=== PATIENT | male | born 1970 | race Caucasian/White ===

== ENCOUNTER 2018-09-11 20:25 | Emergency (ER) | payer SELFPAY ==
[2018-09-12] MEDS: ASPIRIN 325 MG TAB PO (02:47)
[2018-09-12] MEDS: DEXAMETHASONE 10 MG/ML 1 ML INJ IM (02:47)
[2018-09-12] MEDS: IPRATROPIUM (NEB) 0.5 MG/2.5 ML AMP HHN (02:59)
[2018-09-12] MEDS: ALBUTEROL 0.083% (NEB) 2.5 MG/3 ML AMP HHN (02:59)
== END 2018-09-12 03:37 | disposition home or self-care (01) ==
LOC: FTE 20:25
DX: J45.901 Unspecified asthma with (acute) exacerbation (principal); R05 Cough; Z79.82 Long term (current) use of aspirin
CPT/HCPCS: 93005; 94664; 96372; 99284-25

== ENCOUNTER 2018-10-21 09:15 | Emergency (ER) | payer OTHER | END 2018-10-21 10:30 | disposition home or self-care (01) | LOC: FTE 10:30 | DX: J45.909 Unspecified asthma, uncomplicated (principal) | CPT/HCPCS: 87880; 99283 ==

== ENCOUNTER 2018-10-30 20:14 | Emergency (ER) | payer OTHER ==
[2018-10-30] MEDS: IPRATROPIUM (NEB) 0.5 MG/2.5 ML AMP NEB (21:52)
[2018-10-30] MEDS: LEVALBUTEROL (NEB) 1.25 MG/0.5 ML AMP INH (21:52)
[2018-10-30 21:54] LABS: ADD MAN DIFF? NO
[2018-10-30] MEDS: SOD CHLORIDE 0.9% 1,000 ML IV (21:54)
[2018-10-30 21:58] LABS: BASOPHIL # 0.1 10^3/ul (0.0-0.1); BASOPHILS % 0.7 % (0.0-2.0); EOSINOPHILS # 0.3 10^3/ul (0.0-0.5); EOSINOPHILS % 3.7 % (0.0-7.0); HEMATOCRIT 41.4 % (42.0-52.0); HEMOGLOBIN 14.1 g/dl (14.0-18.0); LYMPHOCYTES # 2.6 10^3/ul (0.8-2.9); LYMPHOCYTES % 30.9 % (15.0-51.0); MEAN CORPUSCULAR HEMOGLOBIN 29.2 pg (29.0-33.0); MEAN CORPUSCULAR HGB CONC 34.1 g/dl (32.0-37.0); MEAN CORPUSCULAR VOLUME 85.7 fl (82.0-101.0); MEAN PLATELET VOLUME 10.9 fl (7.4-10.4); MONOCYTES % 11.4 % (0.0-11.0); NEUTROPHIL # 4.4 10^3/ul (1.6-7.5); NEUTROPHILS % 52.6 % (39.0-77.0); PLATELET COUNT 197 10^3/UL (140-415); RED BLOOD COUNT 4.83 10^6/ul (4.70-6.10); RED CELL DISTRIBUTION WIDTH 12.7 % (11.5-14.5)
[2018-10-30 21:58] LABS: WHITE BLOOD COUNT 8.3 10^3/ul (4.8-10.8)
[2018-10-30 22:16] LABS: ALANINE AMINOTRANSFERASE 55 IU/L (13-69); ALBUMIN 3.9 g/dl (3.3-4.9); ALBUMIN/GLOBULIN RATIO 1.21; ALKALINE PHOSPHATASE 99 IU/L (42-121); ANION GAP 8 (5-13); ASPARTATE AMINO TRANSFERASE 27 IU/L (15-46); BILIRUBIN,INDIRECT 0.2 mg/dl (0-1.1); BILIRUBIN,TOTAL 0.2 mg/dl (0.2-1.3); BLOOD UREA NITROGEN 21 mg/dl (7-20); CALCIUM 9.4 mg/dl (8.4-10.2); CARBON DIOXIDE 25 mmol/L (21-31); CHLORIDE 108 mmol/L (97-110); CREATININE 0.93 mg/dl (0.61-1.24); Estimated GFR > 60 mL/min (>60); GLUCOSE 109 mg/dl (70-220); LIPASE 59 U/L (23-300); POTASSIUM 3.7 mmol/L (3.5-5.1); SODIUM 141 mmol/L (135-144); TOTAL PROTEIN 7.1 g/dl (6.1-8.1)
== END 2018-10-31 01:07 | disposition home or self-care (01) ==
LOC: E/R 10-31 01:07
DX: J45.901 Unspecified asthma with (acute) exacerbation (principal); R10.11 Right upper quadrant pain
CPT/HCPCS: 36415; 71045; 76705; 80053; 83690; 85025; 94664; 99285-25